=== PATIENT | male | born 1970 | race American Indian/Alaskan Native ===

== ENCOUNTER 2018-04-01 06:47 | Emergency (ER) | payer SELFPAY ==
[2018-04-01 07:04] VITALS: BP 131/94
[2018-04-01] MEDS ORDERED: PROVENTIL IH ONE (07:41)
[2018-04-01] MEDS ORDERED: DECADRON IM ONE (07:41)
--- NOTE | 2018-04-01 07:41 | Emergency Department Report ---
ED Asthma HPI - General Chief Complaint: Adult Asthma Stated Complaint: ASTHMA Time Seen by Provider: 04/01/18 07:36 Source: patient, family Mode of arrival: Ambulatory Limitations: No Limitations - History of Present Illness MD Complaint: "asthma attack", wheezing -: days(s) Asthma History: history of prior ED visit Severity: similar to prior Context: recent URI, ran out of meds Associated Symptoms: dry cough Treatments Prior to Arrival: other (none) - Related Data Current Asthma Therapy: inhaled bronchodilator Previous Rx's Medication Instructions Recorded Last Taken Type ALBUTEROL Inhaler(NF) [VENTOLIN 2 puff IH Q6H PRN #1 inha 04/01/18 Unknown Rx Inhaler(NF)] Cetirizine HCl [ZyrTEC] 10 mg PO QDAY 21 Days #21 04/01/18 Unknown Rx tab.rapdis Fluticasone [Flonase] 1 spray NS QDAY 14 Days #1 bottle 04/01/18 Unknown Rx methylPREDNISolone [Medrol Dose 4 mg PO DAILY #1 tab.ds.pk 04/01/18 Unknown Rx William] Allergies Allergy/AdvReac Type Severity Reaction Status Date / Time No Known Allergies Allergy Unverified 04/01/18 07:02 ED Review of Systems ROS: Stated complaint: ASTHMA Other details as noted in HPI Constitutional: denies: chills, fever Eyes: denies: eye pain, eye discharge, vision change ENT: congestion. denies: ear pain, throat pain Respiratory: cough, wheezing. denies: shortness of breath, SOB with exertion, SOB at rest, stridor Cardiovascular: denies: chest pain, palpitations, edema, syncope, paroxysmal nocturnal dyspnea Gastrointestinal: denies: abdominal pain, nausea, diarrhea Musculoskeletal: denies: back pain, joint swelling, arthralgia, myalgia Skin: denies: rash, lesions Neurological: denies: headache, weakness ED Past Medical Hx - Past Medical History Previous Medical History?: Yes Hx Asthma: Yes - Surgical History Past Surgical History?: No - Family History Family history: hypertension - Social History Smoking Status: Never Smoker Substance Use Type: None - Medications Home Medications: Home Medications Medication Instructions Recorded Confirmed Last Taken Type ALBUTEROL Inhaler(NF) [VENTOLIN 2 puff IH Q6H PRN #1 inha 04/01/18 Unknown Rx Inhaler(NF)] Cetirizine HCl [ZyrTEC] 10 mg PO QDAY 21 Days #21 04/01/18 Unknown Rx tab.rapdis Fluticasone [Flonase] 1 spray NS QDAY 14 Days #1 bottle 04/01/18 Unknown Rx methylPREDNISolone [Medrol Dose 4 mg PO DAILY #1 tab.ds.pk 04/01/18 Unknown Rx William] ED Physical Exam - General Limitations: No Limitations General appearance: alert, in no apparent distress - Head Head exam: Present: atraumatic, normocephalic, normal inspection - Eye Eye exam: Present: normal appearance, PERRL, EOMI Pupils: Present: normal accommodation - ENT ENT exam: Present: normal exam, normal orophraynx, mucous membranes moist, TM's normal bilaterally, normal external ear exam - Neck Neck exam: Present: normal inspection, full ROM. Absent: tenderness, lymphadenopathy - Respiratory Respiratory exam: Present: normal lung sounds bilaterally. Absent: respiratory distress, chest wall tenderness - Cardiovascular Cardiovascular Exam: Present: regular rate, normal rhythm, normal heart sounds. Absent: systolic murmur, diastolic murmur - GI/Abdominal GI/Abdominal exam: Present: soft, normal bowel sounds. Absent: distended, tenderness, guarding, rebound, rigid, organomegaly, mass - Extremities Exam Extremities exam: Present: normal inspection, full ROM, normal capillary refill , other (No cce. + 2 pulses in all extremities, no neurovascular compromise). Absent: tenderness, pedal edema, joint swelling, calf tenderness - Back Exam Back exam: Present: normal inspection, full ROM, other (ambulates without any difficulties). Absent: tenderness, CVA tenderness (L), muscle spasm, paraspinal tenderness, vertebral tenderness, rash noted - Neurological Exam Neurological exam: Present: alert, oriented X3, normal gait - Psychiatric Psychiatric exam: Present: normal affect, normal mood - Skin Skin exam: Present: warm, dry, intact, normal color. Absent: rash ED Course Vital Signs 04/01/18 04/01/18 04/01/18 07:02 08:04 08:14 Temperature 97.7 F Pulse Rate 74 Pulse Rate [ 75 78 Bilateral Throughout] Respiratory 22 Rate Respiratory 18 21 Rate [Bilateral Throughout] Blood Pressure 131/94 O2 Sat by Pulse 97 Oximetry - Reevaluation(s) Reevaluation #1: 04/01/18 10:03 Patient received albuterol 5 mg and Atrovent 0.5 mg nebulizer along with Decadron 10 mg IM. Upon reevaluation, patient said he felt better. Lung sounds are clear ED Medical Decision Making - Medical Decision Making This is a 47-year-old male here reports that he is having an asthma attack and that he ran out of his asthma pump would like to have the treatment and a prescription for albuterol. Patient was seen by myself and examined and found to have wheezing for the aranda with normal work of breathing. He has dry cough, nasal congestion with runny nose and bilateral TM congested without erythema. He is acute asthma exacerbation with upper respiratory infection with cough and congestion. He was given albuterol 5 mg /Atrovent 0.5 mg nebulizer treatments and Decadron 10 mg IM. I reevaluated him and his lung sounds were clear after treatment. He says he feels better. Vital signs are stable he is afebrile and in no pain. The [facility] to follow up with primary care physician in 2-3 days. Is given prescription for Flonase, Zyrtec, albuterol, prednisone Dosepak. Critical care attestation.: If time is entered above; I have spent that time in minutes in the direct care of this critically ill patient, excluding procedure time. ED Disposition Clinical Impression: URI with cough and congestion Asthma exacerbation attacks Qualifiers: Asthma severity: moderate Asthma persistence: unspecified Qualified Code(s): J45.901 - Unspecified asthma with (acute) exacerbation Disposition: -01 TO HOME OR SELFCARE Is pt being admited?: No Does the pt Need Aspirin: No Condition: Stable Instructions: Asthma (ED), Upper Respiratory Infection (ED), Acute Cough (ED) Additional Instructions: Follow-up with her primary care physician in 2-3 days If your condition worsens, return to the emergency room Take Medication as prescribed Prescriptions: ALBUTEROL Inhaler(NF) [VENTOLIN Inhaler(NF)] 2 puff IH Q6H PRN #1 inha PRN Reason: cough and wheeze Cetirizine HCl [ZyrTEC] 10 mg PO QDAY 21 Days #21 tab.rapdis Fluticasone [Flonase] 1 spray NS QDAY 14 Days #1 bottle methylPREDNISolone [Medrol Dose William] 4 mg PO DAILY #1 tab.ds.pk Referrals: PRIMARY CARE, [Primary Care Provider] - 2-3 Days [facility] [Outside] - 2-3 Days Forms: Work/School Release Form(ED)
[2018-04-01] MEDS ORDERED: ATROVENT IH ONE (07:42)
== END 2018-04-01 10:15 | disposition home or self-care (01) ==
LOC: ED 06:47
DX: J06.9 Acute upper respiratory infection, unspecified (principal); J45.901 Unspecified asthma with (acute) exacerbation
CPT/HCPCS: 94640; 96372; 99282; J1100

== ENCOUNTER 2018-04-14 15:43 | Emergency (ER) | payer OTHER ==
[2018-04-14 15:52] VITALS: BP 132/105
[2018-04-14] MEDS ORDERED: DUONEB *Not for PRN Use IH ONE ×2 (15:52→17:39)
[2018-04-14] MEDS ORDERED: DELTASONE PO ONE (18:13)
--- NOTE | 2018-04-14 18:17 | Emergency Department Report ---
ED Asthma HPI - General Chief Complaint: Adult Asthma Stated Complaint: ASTHMA ATTACK Time Seen by Provider: 04/14/18 18:00 Source: patient Mode of arrival: Ambulatory Limitations: No Limitations - History of Present Illness Initial Comments: Patient reports difficulty breathing from an asthma attack that started today. The attack was triggered by exposure to his roommate's cigarette smoking and animal dander. He was seen and treated in the ED two weeks ago, however he was unable to afford his discharge prescriptions. MD Complaint: "asthma attack", shortness of breath Onset/Timin -: hour(s) Time: 06:00 Asthma History: childhood onset, history of prior ED visit Severity: moderate, similar to prior Context: medication non-compliance, pet exposure, smoke exposure Associated Symptoms: productive cough. denies: dry cough, fever, chest pain, hemoptysis, leg edema, syncope Treatments Prior to Arrival: other (none) - Related Data Previous Rx's Medication Instructions Recorded Last Taken Type ALBUTEROL Inhaler(NF) [VENTOLIN 2 puff IH Q6H PRN #1 inha 04/14/18 Unknown Rx Inhaler(NF)] Cetirizine HCl [ZyrTEC] 10 mg PO QDAY 21 Days #21 04/14/18 Unknown Rx tab.rapdis Fluticasone [Flonase] 1 spray NS QDAY 14 Days #1 bottle 04/14/18 Unknown Rx methylPREDNISolone [Medrol Dose 4 mg PO DAILY #1 tab.ds.pk 04/14/18 Unknown Rx William] Allergies Allergy/AdvReac Type Severity Reaction Status Date / Time No Known Allergies Allergy Unverified 04/01/18 07:02 ED Review of Systems ROS: Stated complaint: ASTHMA ATTACK Other details as noted in HPI Constitutional: denies: chills, fever Eyes: denies: eye pain, eye discharge, vision change ENT: congestion (nasal). denies: ear pain, throat pain, dental pain, hearing loss, epistaxis Respiratory: shortness of breath, wheezing. denies: cough, orthopnea, SOB with exertion, SOB at rest, stridor Cardiovascular: denies: chest pain, palpitations Endocrine: no symptoms reported Gastrointestinal: denies: abdominal pain, nausea, diarrhea Genitourinary: denies: urgency, dysuria Musculoskeletal: denies: back pain, joint swelling, arthralgia Skin: denies: rash, lesions Neurological: denies: headache, weakness, paresthesias Psychiatric: denies: anxiety, depression Hematological/Lymphatic: denies: easy bleeding, easy bruising ED Past Medical Hx - Past Medical History Hx Asthma: Yes - Social History Smoking Status: Never Smoker Substance Use Type: None - Medications Home Medications: Home Medications Medication Instructions Recorded Confirmed Last Taken Type ALBUTEROL Inhaler(NF) [VENTOLIN 2 puff IH Q6H PRN #1 inha 04/14/18 Unknown Rx Inhaler(NF)] Cetirizine HCl [ZyrTEC] 10 mg PO QDAY 21 Days #21 04/14/18 Unknown Rx tab.rapdis Fluticasone [Flonase] 1 spray NS QDAY 14 Days #1 bottle 04/14/18 Unknown Rx methylPREDNISolone [Medrol Dose 4 mg PO DAILY #1 tab.ds.pk 04/14/18 Unknown Rx William] ED Physical Exam - General Limitations: No Limitations General appearance: alert, in no apparent distress - Head Head exam: Present: atraumatic, normocephalic - Eye Eye exam: Present: normal appearance Pupils: Present: normal accommodation - ENT ENT exam: Present: normal exam, mucous membranes moist, TM's normal bilaterally , normal external ear exam, other (clear nasal drainage). Absent: mucous membranes dry - Expanded ENT Exam Expanded Ear exam: Present: normal external inspection. Absent: auricular hematoma, auricular trauma Mouth exam: Present: normal external inspection, tongue normal. Absent: drooling, trismus, muffled voice, tongue elevation, laceration Teeth exam: Present: normal inspection. Absent: dental caries, fractured tooth #, dental tenderness #, gingival enlargement Throat exam: Positive: normal inspection. Negative: tonsillar erythema, tonsillomegaly, tonsillar exudate, R peritonsillar mass, L peritonsillar mass - Neck Neck exam: Present: normal inspection, full ROM. Absent: tenderness, meningismus, lymphadenopathy, thyromegaly - Respiratory Respiratory exam: Present: wheezes. Absent: respiratory distress, rales, rhonchi, stridor, chest wall tenderness, accessory muscle use, decreased breath sounds, prolonged expiratory - Cardiovascular Cardiovascular Exam: Present: regular rate, normal rhythm, normal heart sounds. Absent: systolic murmur, diastolic murmur, rubs, gallop - Rectal Rectal exam: Present: deferred - Extremities Exam Extremities exam: Present: normal inspection, full ROM, normal capillary refill. Absent: tenderness, pedal edema, joint swelling - Back Exam Back exam: Present: normal inspection, full ROM. Absent: tenderness, CVA tenderness (R), CVA tenderness (L), muscle spasm, paraspinal tenderness, vertebral tenderness - Neurological Exam Neurological exam: Present: alert, oriented X3, CN II-XII intact, normal gait, reflexes normal. Absent: abnormal gait, motor sensory deficit - Psychiatric Psychiatric exam: Present: normal affect, normal mood - Skin Skin exam: Present: warm, dry, intact, normal color. Absent: rash ED Course Vital Signs 04/14/18 04/14/18 04/14/18 15:50 16:01 16:25 Temperature 98.3 F Pulse Rate 82 Pulse Rate [ 78 78 Posterior Bilateral Throughout] Respiratory 24 Rate Respiratory 22 20 Rate [Posterior Bilateral Throughout] Blood Pressure 132/105 O2 Sat by Pulse 94 Oximetry 04/14/18 04/14/18 04/14/18 16:48 17:40 17:49 Temperature Pulse Rate Pulse Rate [ 99 H 81 Posterior Bilateral Throughout] Respiratory 18 Rate Respiratory 24 25 H Rate [Posterior Bilateral Throughout] Blood Pressure O2 Sat by Pulse Oximetry 04/14/18 17:55 Temperature Pulse Rate Pulse Rate [ 81 Posterior Bilateral Throughout] Respiratory Rate Respiratory 20 Rate [Posterior Bilateral Throughout] Blood Pressure O2 Sat by Pulse Oximetry - Reevaluation(s) Reevaluation #1: 04/14/18 18:17 Several duoneb and oral prednisone ordered ED Medical Decision Making - Lab Data Vital Signs 04/14/18 04/14/18 04/14/18 15:50 16:01 16:25 Temperature 98.3 F Pulse Rate 82 Pulse Rate [ 78 78 Posterior Bilateral Throughout] Respiratory 24 Rate Respiratory 22 20 Rate [Posterior Bilateral Throughout] Blood Pressure 132/105 O2 Sat by Pulse 94 Oximetry 04/14/18 04/14/18 04/14/18 16:48 17:40 17:49 Temperature Pulse Rate Pulse Rate [ 99 H 81 Posterior Bilateral Throughout] Respiratory 18 Rate Respiratory 24 25 H Rate [Posterior Bilateral Throughout] Blood Pressure O2 Sat by Pulse Oximetry 04/14/18 17:55 Temperature Pulse Rate Pulse Rate [ 81 Posterior Bilateral Throughout] Respiratory Rate Respiratory 20 Rate [Posterior Bilateral Throughout] Blood Pressure O2 Sat by Pulse Oximetry - Medical Decision Making During the course of ED, several duonebs and oral prednisone were ordered. He reports wheezing and breathing much better after treatment in the ED. Patient was given a [employer] discount saving card to assist with medication compliance. He was sent home with Ventolin HFA, Zyrtec, Flonase and Medrol dose pack, instructed to follow up with the selective referral given at discharge, he verbalized understanding - Differential Diagnosis Asthma Exacerbation, URI Critical care attestation.: If time is entered above; I have spent that time in minutes in the direct care of this critically ill patient, excluding procedure time. ED Disposition Clinical Impression: URI with cough and congestion Asthma exacerbation attacks Qualifiers: Asthma severity: mild Asthma persistence: intermittent Qualified Code(s): J45.21 - Mild intermittent asthma with (acute) exacerbation Disposition: - TO HOME OR SELFCARE Is pt being admited?: No Does the pt Need Aspirin: No Condition: Stable Instructions: Asthma (ED) Additional Instructions: Take medication as directed. Follow up with the selective referral given at discharge. Avoid triggers that exacerbate your asthma. Return back to the ED for worsening symptoms or concerns Prescriptions: ALBUTEROL Inhaler(NF) [VENTOLIN Inhaler(NF)] 2 puff IH Q6H PRN #1 inha PRN Reason: cough and wheeze Cetirizine HCl [ZyrTEC] 10 mg PO QDAY 21 Days #21 tab.rapdis Fluticasone [Flonase] 1 spray NS QDAY 14 Days #1 bottle methylPREDNISolone [Medrol Dose William] 4 mg PO DAILY #1 tab.ds.pk Referrals: [facility] [Outside] - 3-5 Days [facility] [Outside] - 3-5 Days [facility] [Outside] - 3-5 Days Forms: Work/School Release Form(ED)
== END 2018-04-14 18:46 | disposition home or self-care (01) ==
LOC: ED 15:43
DX: J06.9 Acute upper respiratory infection, unspecified (principal); J45.21 Mild intermittent asthma with (acute) exacerbation
CPT/HCPCS: 94640; 99283; J7512